=== PATIENT | female | born 1995 | race Native Hawaiian/Other Pacific Islander ===

== ENCOUNTER 2020-07-09 10:46 | Emergency (ER) | payer OTHER ==
[~2020-07-09] VITALS: Ht 157.5 cm; Wt 81.6 kg
[2020-07-09 10:58] VITALS: TEMP 98.7
[2020-07-09 12:01] LABS: PLATELET COUNT 343 K/uL (152-353)
[2020-07-09 12:08] LABS: POTASSIUM 4.4 mmol/L (3.6-5.2)
[2020-07-09 16:05] VITALS: BP 120/79
== END 2020-07-09 16:05 | disposition home or self-care (01) ==
LOC: ED 10:46
PROVIDERS: Emergency Medicine Emergency Medical Services
DX: K52.89 Other specified noninfective gastroenteritis and colitis (principal)
CPT/HCPCS: 80053; 81000; 81025; 83690; 85027; 96360; 96375; 99284; J1885; J2405

== ENCOUNTER 2021-05-29 23:51 | Emergency (ER) | payer OTHER ==
[~2021-05-29] VITALS: Ht 157.5 cm; Wt 90.7 kg
[2021-05-30 01:02] VITALS: BP 146/95; TEMP 98.1
== END 2021-05-30 01:02 | disposition home or self-care (01) ==
LOC: ED 23:51
DX: E86.0 Dehydration (principal); K21.9 Gastro-esophageal reflux disease without esophagitis
CPT/HCPCS: 99282